=== PATIENT | male | born 1985 | race African-American/Black ===

== ENCOUNTER 2020-07-13 08:57 | Emergency (ER) | payer OTHER ==
[~2020-07-13] VITALS: Ht 185.4 cm; Wt 106.6 kg
[2020-07-13 09:53] LABS: BASOPHIL % 0.5 % (0-2); PLATELET COUNT 229 x10^3mcL (130-400); RED CELL DISTRIBUTION WIDTH 14.1 % (11.5-14.5)
[2020-07-13 10:00] LABS: CALCIUM 8.5 mg/dL (8.5-10.1); CARBON DIOXIDE 25.4 mmol/L (21-32); CHLORIDE SERUM 104 mmol/L (98-107); CREATININE SERUM 1.3 mg/dL (0.7-1.3); GFR1 > 60 mL/min; GLUCOSE SERUM 132 mg/dL (74-106); POTASSIUM SERUM 3.8 mmol/L (3.5-5.1); SODIUM SERUM 139 mmol/L (136-145)
[2020-07-13 10:05] LABS: ALBUMIN 3.7 g/dL (3.4-5.0); ALKALINE PHOSPHATASE 97 U/L (46-116); ALT/SGPT 23 U/L (16-63); AST/SGOT 28 U/L (15-37); BILIRUBIN TOTAL 0.31 mg/dL (0.20-1.00); TOTAL PROTEIN, SERUM 7.7 g/dL (6.4-8.2)
[2020-07-13 10:21] LABS: UA SPECIFIC GRAVITY >=1.030 (1.005-1.035); microscopic required? YES; urine erythrocyte 3+ (NEGATIVE)
[2020-07-13 13:13] VITALS: BP 134/72
== END 2020-07-13 13:13 | disposition home or self-care (01) ==
LOC: ED 08:57
PROVIDERS: Emergency Medicine
DX: N20.1 Calculus of ureter (principal)
CPT/HCPCS: J1885

== ENCOUNTER 2020-07-13 14:59 | Emergency (ER) | payer OTHER ==
[~2020-07-13] VITALS: Ht 185.4 cm; Wt 106.6 kg
[2020-07-13 15:05] VITALS: BP 153/98; Ht 185.4 cm; Wt 106.6 kg
== END 2020-07-13 16:13 | disposition home or self-care (01) ==
LOC: ED 14:59
DX: N20.0 Calculus of kidney (principal); Z98.890 Other specified postprocedural states
CPT/HCPCS: J1885

== ENCOUNTER 2020-07-14 05:46 | Inpatient (IN) | payer OTHER ==
[~2020-07-14] VITALS: Ht 185.4 cm; Wt 107.0 kg
[2020-07-14 05:52] VITALS: Ht 185.4 cm; Wt 107.0 kg
[2020-07-14 06:54] LABS: CALCIUM 8.4 mg/dL (8.5-10.1); CARBON DIOXIDE 27.4 mmol/L (21-32); CHLORIDE SERUM 104 mmol/L (98-107); CREATININE SERUM 1.4 mg/dL (0.7-1.3); GFR1 > 60 mL/min; GLUCOSE SERUM 143 mg/dL (74-106); POTASSIUM SERUM 3.2 mmol/L (3.5-5.1); SODIUM SERUM 139 mmol/L (136-145)
[2020-07-14 07:35] LABS: BASOPHIL % 0.2 % (0-2); PLATELET COUNT 223 x10^3mcL (130-400); RED CELL DISTRIBUTION WIDTH 14.1 % (11.5-14.5)
[2020-07-14 07:56] LABS: UA SPECIFIC GRAVITY >=1.030 (1.005-1.035); microscopic required? YES; urine erythrocyte 3+ (NEGATIVE)
[2020-07-14 11:04] VITALS: BP 128/69
[2020-07-14 17:02] VITALS: BP 127/67
[2020-07-14 20:39] VITALS: BP 123/72
[2020-07-15 05:30] VITALS: BP 122/67
[2020-07-15 06:30] LABS: BASOPHIL % 0.4 % (0-2); PLATELET COUNT 209 x10^3mcL (130-400); RED CELL DISTRIBUTION WIDTH 14.2 % (11.5-14.5)
[2020-07-15 06:53] LABS: CALCIUM 8.3 mg/dL (8.5-10.1); CARBON DIOXIDE 28.3 mmol/L (21-32); CHLORIDE SERUM 107 mmol/L (98-107); CREATININE SERUM 1.3 mg/dL (0.7-1.3); GFR1 > 60 mL/min; GLUCOSE SERUM 95 mg/dL (74-106); POTASSIUM SERUM 4.6 mmol/L (3.5-5.1); SODIUM SERUM 140 mmol/L (136-145)
[2020-07-15 08:21] VITALS: BP 123/46
[2020-07-15 12:31] VITALS: BP 104/72
[2020-07-15 15:51] VITALS: BP 124/73
[2020-07-15 15:59] VITALS: BP 124/73
[2020-07-15] MEDS ORDERED: FLO4 PO (16:16)
== END 2020-07-15 17:25 | disposition home or self-care (01) | DRG 465 ==
LOC: ED 05:46 → MU 07:42
PROVIDERS: Emergency Medicine; ADMIT Internal Medicine; ATTEND Internal Medicine
DX: N13.1 Hydronephrosis with ureteral stricture, not elsewhere classified (principal); N17.9 Acute kidney failure, unspecified; R73.9 Hyperglycemia, unspecified; Z82.49 Family history of ischemic heart disease and other diseases of the circulatory system
CPT/HCPCS: G0378; J1885; J2405; J3480; J7030

== ENCOUNTER 2020-07-16 06:06 | Day surgery (SDC) | payer OTHER ==
[~2020-07-16] VITALS: Ht 182.9 cm; Wt 107.0 kg
[~2020-07-16 06:06] MED LIST: FLO4 PO
[2020-07-16 06:32] VITALS: BP 132/65
[2020-07-16 14:34] VITALS: BP 139/84
== END 2020-07-16 11:10 | disposition home or self-care (01) ==
LOC: DS 06:06 → OR 07:30 → DS 11:10
PROVIDERS: ATTEND Urology
DX: N13.2 Hydronephrosis with renal and ureteral calculous obstruction (principal); K44.9 Diaphragmatic hernia without obstruction or gangrene; J45.909 Unspecified asthma, uncomplicated; F17.290 Nicotine dependence, other tobacco product, uncomplicated
CPT/HCPCS: 51610; C1769; C2625; J0690; J2175; J3010; Q9967

== ENCOUNTER 2020-07-23 12:52 | Emergency (ER) | payer OTHER ==
[~2020-07-23] VITALS: Ht 185.4 cm; Wt 106.1 kg
[2020-07-23 13:12] VITALS: Ht 185.4 cm; Wt 106.1 kg
[2020-07-23 14:57] LABS: CALCIUM 8.7 mg/dL (8.5-10.1); CARBON DIOXIDE 31.5 mmol/L (21-32); CHLORIDE SERUM 103 mmol/L (98-107); CREATININE SERUM 1.4 mg/dL (0.7-1.3); GFR1 > 60 mL/min; GLUCOSE SERUM 101 mg/dL (74-106); POTASSIUM SERUM 4.2 mmol/L (3.5-5.1); SODIUM SERUM 138 mmol/L (136-145)
[2020-07-23 16:17] VITALS: BP 119/70
== END 2020-07-23 16:17 | disposition home or self-care (01) ==
LOC: ED 12:52
PROVIDERS: Emergency Medicine
DX: R10.9 Unspecified abdominal pain (principal); G89.18 Other acute postprocedural pain; Z87.442 Personal history of urinary calculi
CPT/HCPCS: J1885